=== PATIENT | male | born 1980 | race Caucasian/White ===

== ENCOUNTER 2017-03-12 14:41 | Emergency (ER) | payer OTHER ==
[2017-03-12 14:48] VITALS: PULSE 90; TEMP 98.9; BMI 26.6
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
[2017-03-12] MEDS ORDERED: IBUPROFEN 400 MG TABLET (FP) PO ONE ×2 (15:39→15:41)
[2017-03-12 15:47] VITALS: BP 128/75
== END 2017-03-12 15:49 | disposition home or self-care (01) ==
LOC: JERFT 14:41
DX: S13.4XXA Sprain of ligaments of cervical spine, initial encounter (principal); V43.52XA Car driver injured in collision with other type car in traffic accident, initial encounter; Y93.89 Activity, other specified; Y92.410 Unspecified street and highway as the place of occurrence of the external cause
CPT/HCPCS: 99281-25

== ENCOUNTER 2023-03-03 09:20 | Emergency (ER) | payer OTHER ==
[2023-03-03] MEDS ORDERED: IBUPROFEN 600 MG TABLET (FP) PO ONE ×2 (10:04→10:07)
[2023-03-03 10:05] VITALS: BP 125/78; PULSE 72; RESP 18; TEMP 97.4
== END 2023-03-03 12:04 | disposition home or self-care (01) ==
LOC: JER 09:20 → JERFT 09:20
DX: M25.572 Pain in left ankle and joints of left foot (principal); X50.1XXA Overexertion from prolonged static or awkward postures, initial encounter; Y93.02 Activity, running
CPT/HCPCS: 73610-TC-LT-FY; 73630-TC-LT; 99283-25